=== PATIENT | male | born 1990 | race Hispanic/Latino ===

== ENCOUNTER 2018-02-04 18:52 | Emergency (ER) | payer SELFPAY ==
[~2018-02-04] VITALS: Ht 170.2 cm; Wt 122.2 kg
[~2018-02-04 18:52] MED LIST: LORTAB 5 OR
[2018-02-04] MEDS ORDERED: AMOXICILLIN500 MG PO (20:21)
[2018-02-04 20:25] VITALS: BP 135/84
== END 2018-02-04 20:25 | disposition home or self-care (01) | DRG 914 ==
LOC: ED 18:52
DX: S41.141A Puncture wound with foreign body of right upper arm, initial encounter (principal); W34.010A Accidental discharge of airgun, initial encounter; Y93.89 Activity, other specified; Y92.009 Unspecified place in unspecified non-institutional (private) residence as the place of occurrence of the external cause